=== PATIENT | male | born 1995 | race African-American/Black ===

== ENCOUNTER 2016-07-28 23:00 | Emergency (ER) | payer MEDICAID ==
[2016-07-29 00:39] LABS: APPEARANCE,URINE SLIGHTLY-CLOUDY; BILIRUBIN,URINE NEGATIVE (NEGATIVE); GLUCOSE, URINE NEGATIVE (NEGATIVE); KETONES,URINE NEGATIVE (NEGATIVE); LEUKOCYTE ESTERASE,URINE LARGE (NEGATIVE); NITRITE,URINE NEGATIVE (NEGATIVE); PROTEIN,URINE NEGATIVE (NEGATIVE); UROBILINOGEN,URINE NEGATIVE mg/dL (<2.0)
[2016-07-29] MEDS ORDERED: LIDOCAINE 1% INJ-PF (10 MG/ML) 30 ML SDV INFIL ONE (01:21)
[2016-07-29] MEDS ORDERED: CEFTRIAXONE INJ 250 MG VIAL IM ONE (01:21)
[2016-07-29] MEDS ORDERED: AZITHROMYCIN 250 MG TABLET PO ONE (01:21)
--- NOTE | 2016-07-29 01:23 | ER Document Report ---
ED General - General Chief Complaint: Urinary Problem Stated Complaint: URINARY PROBLEM Notes: Patient is a 21-year-old male who presents with concerns of penile discharge and dysuria. States that he had unprotected sex with his girlfriend for the first time and developed symptoms 2 days later. No history of similar symptoms in the past. Nothing improves or worsens his dysuria which he described as a burning pain when he urinates. He has not seen his primary care physician regarding today's concerns. He denies any associated abdominal pain, fever, nausea, vomiting. TRAVEL OUTSIDE OF THE [place] IN LAST 30 DAYS: No Past Medical History - General Information source: Patient - Social History Smoking Status: Never Smoker Frequency of alcohol use: None Drug Abuse: None Family History: Reviewed & Not Pertinent Patient has suicidal ideation: No Patient has homicidal ideation: No Renal/ Medical History: Denies: Hx Peritoneal Dialysis Review of Systems - Review of Systems Notes: Constitutional: Negative for fever. HENT: Negative for sore throat. Eyes: Negative for visual changes. Cardiovascular: Negative for chest pain. Respiratory: Negative for shortness of breath. Gastrointestinal: Negative for abdominal pain, vomiting or diarrhea. Genitourinary: Positive for dysuria. Musculoskeletal: Negative for back pain. Skin: Negative for rash. Neurological: Negative for headaches, weakness or numbness. 10 point ROS negative except as marked above and in HPI. Physical Exam - Vital signs Vitals: Temp Pulse Resp BP Pulse Ox 98.2 F 67 18 159/71 H 98 07/29/16 01:05 07/29/16 01:05 07/29/16 01:05 07/29/16 01:05 07/29/16 01:05 Interpretation: Hypertensive Notes: PHYSICAL EXAMINATION: GENERAL: Well-appearing, well-nourished and in no acute distress. HEAD: Atraumatic, normocephalic. EYES: sclera anicteric, conjunctiva are normal. ENT: Moist mucous membranes. NECK: Normal range of motion LUNGS: Normal work of breathing HEART: 2+ radial pulses bilaterally EXTREMITIES: no pitting or edema. No cyanosis. NEUROLOGICAL: No focal neurological deficits. Moves all extremities spontaneously and on command. PSYCH: Normal mood, normal affect. SKIN: Warm, Dry, normal turgor, no rashes or lesions noted. Course - Re-evaluation Re-evalutation: 07/29/16 01:23 Patient presents with symptoms consistent urethritis likely secondary to a sexually transmitted infection. He has been treated with ceftriaxone and azithromycin. Safe sex practices reviewed. Otherwise well in appearance, vitals within normal limits, and no evidence to suggest an acute pyelonephritis or acute intra-abdominal pathology. At this time will discharge with return precautions and follow-up recommendations. Verbal discharge instructions given a the bedside and opportunity for questions given. Medication warnings reviewed. Patient is in agreement with this plan and has verbalized understanding of return precautions and the need for primary care follow-up in the next 24-72 hours. - Vital Signs Vital signs: Temp Pulse Resp BP Pulse Ox 98.1 F 60 16 148/77 H 98 07/29/16 01:48 07/29/16 01:48 07/29/16 01:48 07/29/16 01:48 07/29/16 01:48 - Laboratory Laboratory results interpreted by me: 07/29/16 07/29/16 00:13 00:13 Ur Leukocyte Esterase LARGE H Chlamydia DNA (PCR) DETECTED H N.gonorrhoeae DNA (PCR) DETECTED H Discharge - Discharge Clinical Impression: STI (sexually transmitted infection) Condition: Good Disposition: HOME, SELF-CARE Additional Instructions: You need to use protection every time you have sex. Failure to do so can result in transmission of infections or unintended . You have been treated for an sexually transmitted infection (STI) today. All of your partners should be tested and treated as they are also likely to be infected. Please return if you develop abdominal pain, fever, persistent vomiting, or any other symptoms that are concerning to you.
[2016-07-29 01:50] VITALS: BP 148/77
[2016-07-29 02:15] LABS: CHLAM PCR DETECTED (NOT DETECT)
== END 2016-07-29 02:00 | disposition home or self-care (01) ==
LOC: ER 23:00
DX: A64 Unspecified sexually transmitted disease (principal); R36.9 Urethral discharge, unspecified; R30.0 Dysuria
CPT/HCPCS: 99283; 96372; 81001; 87491; 87591; Q0144; J3490; J0696